=== PATIENT | male | born 1960 | race Caucasian/White ===

== ENCOUNTER 2025-03-24 14:14 | Observation (INO) | payer SELFPAY ==
[2025-03-23 14:26] VITALS: BP 148/92; BMI 33.1
--- NOTE | 2025-03-23 15:10 | ED.GENMED ---
History of Present Illness
<Isaiah Bansal MD, Resident - Last Filed: 03/24/25 00:24>
General
Chief Complaint: Back Pain
Source: patient and significant other
Time Seen by Provider: 03/23/25 15:09
History of Present Illness
History of Present Illness:
64-year-old male with no significant past medical history comes to the ED due to tweaking his back yesterday leading to increased back pain mostly from back muscle spasms. He says that he tweaked it yesterday and his symptoms have been
progressively getting worse he says the symptoms are mainly around the lower back and go across the middle [address] but do not radiate further than that. He has no fever chills shortness of breath or chest pain, states that he has had
similar symptoms in the past however not as intense. Last event happened 4 years ago and previously 3 further years back. He said that he never really took any medications for the back pain other than [id number] NSAIDs. He reports no numbing
or difficulty with movement in his lower extremities. Does not have any pain radiating down his legs.
Past History
<Isaiah Bansal MD, Resident - Last Filed: 03/24/25 00:24>
Past History
ED Past Medical History: None
ED Past Surgical History: None
Review of Systems
<Isaiah Bansal MD, Resident - Last Filed: 03/24/25 00:24>
Review of Systems
Allergies reviewed?: Yes
Constitutional: Reports sleep disturbance; Denies fever or fatigue
EENT: Reports no symptoms
Respiratory: Reports no symptoms
Cardiac: Reports no symptoms
ABD/GI: Reports no symptoms
: Reports no symptoms
Musculoskeletal: Reports back pain (Lower back)
Skin: Reports no symptoms
Neurological: Reports no symptoms
Endocrine: Reports no symptoms
Hematologic/Lymphatic: Reports no symptoms
Psychiatric: Reports no symptoms
Phy Exam
<Isaiah Bansal MD, Resident - Last Filed: 03/24/25 00:24>
General Physical Exam
General Presentation: moderate distress
General age: appears stated age
General Skin: warm and dry
General Habitus: normal
General Mental: anxious
General Hydration: appears well hydrated
Cardiovascular Exam
Cardiovascular Exam: regular rate/rhythm, no edema and no murmur
Pulmonary Exam
Pulmonary Exam: lungs clear, no respiratory distress, no crackles and no wheezing
Musculoskeletal Exam
Musculoskeletal Exam: full ROM and back pain (Marked tenderness lower lumbar spine (6inches of tenderness in the midline) 4-5/10 pain at the moment)
Skin Exam
Skin Exam: normal color, warm/dry and no rash
Course
<Isaiah Bansal MD, Resident - Last Filed: 03/24/25 00:24>
Orders/Labs/Results
Orders:
Orders
03/23/25 15:41
Ketorolac [Toradol] 30 mg IM NOW STA
Lidocaine [Lidocaine 4% Patch] 1 patch TOPICAL ONCE ONE
Apply Lidocaine patch(s) to:: low back
CR Lumbar Spine 2 Or 3 Views Urgent
Comment:
Reason For Exam: back pain
03/23/25 15:42
Cyclobenzaprine HCl [Flexeril] 5 mg PO ONCE ONE
03/23/25 18:20
Oxycodone/Acetaminophen [Percocet 5/325] 1 tablet PO NOW STA
03/23/25 21:04
Diazepam [Valium] 5 mg PO NOW STA
03/24/25 00:00
Dexamethasone Sod Phosphate [Decadron] 10 mg IV NOW STA
Ketorolac [Toradol] 15 mg IV NOW STA
03/24/25 00:52
HYDROmorphone [Dilaudid] 0.5 mg IV NOW STA
03/24/25 01:08
Basic Metabolic Panel Urgent
Complete Blood Count/No Diff Urgent
03/24/25 06:27
Pt Eval And Treat Urgent
Activity Level: Out of Bed-Early Mobility
03/24/25 07:24
Case Management Consult ONCE
Case Management Consult: Discharge Planning
03/24/25 08:53
Diazepam [Valium] 5 mg PO NOW STA
03/24/25 08:54
Ketorolac [Toradol] 15 mg IV NOW STA
03/24/25 Lunch
Regular
At Your Request: Non-Participating
Does patient need a safe tray?: No
Abnormal Lab Results
03/24/25
01:08
RBC 3.57 L 10^6/uL
(4.70-6.10)
Hgb 11.6 L g/dL
(13.0-18.0)
Hct 33.4 L %
(39.0-52.0)
MCH 32.5 H pg
(27.0-31.0)
Chloride 108 H mmol/L
(98-107)
03/24/25 01:08
03/24/25 01:08
Vital Signs
Initial and Last Documented VS:
Initial Vital Signs
Temp Pulse Resp BP Pulse Ox
98.9 F 84 16 148/92 96
03/23/25 14:26 03/23/25 14:26 03/23/25 14:26 03/23/25 14:26 03/23/25 14:26
Last Documented Vital Signs
Temp Pulse Resp BP Pulse Ox
98.9 F 84 20 147/81 95
03/23/25 14:26 03/24/25 09:01 03/24/25 09:01 03/24/25 09:01 03/24/25 09:01
<Michael Espinosa MD - Last Filed: 03/23/25 21:07>
Orders/Labs/Results
Orders:
Orders
03/23/25 15:41
Ketorolac [Toradol] 30 mg IM NOW STA
Lidocaine [Lidocaine 4% Patch] 1 patch TOPICAL ONCE ONE
Apply Lidocaine patch(s) to:: low back
CR Lumbar Spine 2 Or 3 Views Urgent
Comment:
Reason For Exam: back pain
03/23/25 15:42
Cyclobenzaprine HCl [Flexeril] 5 mg PO ONCE ONE
03/23/25 18:20
Oxycodone/Acetaminophen [Percocet 5/325] 1 tablet PO NOW STA
03/23/25 21:04
Diazepam [Valium] 5 mg PO NOW STA
03/24/25 00:00
Dexamethasone Sod Phosphate [Decadron] 10 mg IV NOW STA
Ketorolac [Toradol] 15 mg IV NOW STA
03/24/25 00:52
HYDROmorphone [Dilaudid] 0.5 mg IV NOW STA
03/24/25 01:08
Basic Metabolic Panel Urgent
Complete Blood Count/No Diff Urgent
03/24/25 06:27
Pt Eval And Treat Urgent
Activity Level: Out of Bed-Early Mobility
03/24/25 07:24
Case Management Consult ONCE
Case Management Consult: Discharge Planning
03/24/25 08:53
Diazepam [Valium] 5 mg PO NOW STA
03/24/25 08:54
Ketorolac [Toradol] 15 mg IV NOW STA
03/24/25 Lunch
Regular
At Your Request: Non-Participating
Does patient need a safe tray?: No
Abnormal Lab Results
03/24/25
01:08
RBC 3.57 L 10^6/uL
(4.70-6.10)
Hgb 11.6 L g/dL
(13.0-18.0)
Hct 33.4 L %
(39.0-52.0)
MCH 32.5 H pg
(27.0-31.0)
Chloride 108 H mmol/L
(98-107)
03/24/25 01:08
03/24/25 01:08
Vital Signs
Initial and Last Documented VS:
Initial Vital Signs
Temp Pulse Resp BP Pulse Ox
98.9 F 84 16 148/92 96
03/23/25 14:26 03/23/25 14:26 03/23/25 14:26 03/23/25 14:26 03/23/25 14:26
Last Documented Vital Signs
Temp Pulse Resp BP Pulse Ox
98.9 F 84 20 147/81 95
03/23/25 14:26 03/24/25 09:01 03/24/25 09:01 03/24/25 09:01 03/24/25 09:01
<Judie Park MD - Last Filed: 03/24/25 06:35>
Orders/Labs/Results
Orders:
Orders
03/23/25 15:41
Ketorolac [Toradol] 30 mg IM NOW STA
Lidocaine [Lidocaine 4% Patch] 1 patch TOPICAL ONCE ONE
Apply Lidocaine patch(s) to:: low back
CR Lumbar Spine 2 Or 3 Views Urgent
Comment:
Reason For Exam: back pain
03/23/25 15:42
Cyclobenzaprine HCl [Flexeril] 5 mg PO ONCE ONE
03/23/25 18:20
Oxycodone/Acetaminophen [Percocet 5/325] 1 tablet PO NOW STA
03/23/25 21:04
Diazepam [Valium] 5 mg PO NOW STA
03/24/25 00:00
Dexamethasone Sod Phosphate [Decadron] 10 mg IV NOW STA
Ketorolac [Toradol] 15 mg IV NOW STA
03/24/25 00:52
HYDROmorphone [Dilaudid] 0.5 mg IV NOW STA
03/24/25 01:08
Basic Metabolic Panel Urgent
Complete Blood Count/No Diff Urgent
03/24/25 06:27
Pt Eval And Treat Urgent
Activity Level: Out of Bed-Early Mobility
03/24/25 07:24
Case Management Consult ONCE
Case Management Consult: Discharge Planning
03/24/25 08:53
Diazepam [Valium] 5 mg PO NOW STA
03/24/25 08:54
Ketorolac [Toradol] 15 mg IV NOW STA
03/24/25 Lunch
Regular
At Your Request: Non-Participating
Does patient need a safe tray?: No
Abnormal Lab Results
03/24/25
01:08
RBC 3.57 L 10^6/uL
(4.70-6.10)
Hgb 11.6 L g/dL
(13.0-18.0)
Hct 33.4 L %
(39.0-52.0)
MCH 32.5 H pg
(27.0-31.0)
Chloride 108 H mmol/L
(98-107)
03/24/25 01:08
03/24/25 01:08
Vital Signs
Initial and Last Documented VS:
Initial Vital Signs
Temp Pulse Resp BP Pulse Ox
98.9 F 84 16 148/92 96
03/23/25 14:26 03/23/25 14:26 03/23/25 14:26 03/23/25 14:26 03/23/25 14:26
Last Documented Vital Signs
Temp Pulse Resp BP Pulse Ox
98.9 F 84 20 147/81 95
03/23/25 14:26 03/24/25 09:01 03/24/25 09:01 03/24/25 09:01 03/24/25 09:01
<Shanaqian Gary, DO - Last Filed: 03/24/25 12:33>
Orders/Labs/Results
Orders:
Orders
03/23/25 15:41
Ketorolac [Toradol] 30 mg IM NOW STA
Lidocaine [Lidocaine 4% Patch] 1 patch TOPICAL ONCE ONE
Apply Lidocaine patch(s) to:: low back
CR Lumbar Spine 2 Or 3 Views Urgent
Comment:
Reason For Exam: back pain
03/23/25 15:42
Cyclobenzaprine HCl [Flexeril] 5 mg PO ONCE ONE
03/23/25 18:20
Oxycodone/Acetaminophen [Percocet 5/325] 1 tablet PO NOW STA
03/23/25 21:04
Diazepam [Valium] 5 mg PO NOW STA
03/24/25 00:00
Dexamethasone Sod Phosphate [Decadron] 10 mg IV NOW STA
Ketorolac [Toradol] 15 mg IV NOW STA
03/24/25 00:52
HYDROmorphone [Dilaudid] 0.5 mg IV NOW STA
03/24/25 01:08
Basic Metabolic Panel Urgent
Complete Blood Count/No Diff Urgent
03/24/25 06:27
Pt Eval And Treat Urgent
Activity Level: Out of Bed-Early Mobility
03/24/25 07:24
Case Management Consult ONCE
Case Management Consult: Discharge Planning
03/24/25 08:53
Diazepam [Valium] 5 mg PO NOW STA
03/24/25 08:54
Ketorolac [Toradol] 15 mg IV NOW STA
03/24/25 Lunch
Regular
At Your Request: Non-Participating
Does patient need a safe tray?: No
Abnormal Lab Results
03/24/25
01:08
RBC 3.57 L 10^6/uL
(4.70-6.10)
Hgb 11.6 L g/dL
(13.0-18.0)
Hct 33.4 L %
(39.0-52.0)
MCH 32.5 H pg
(27.0-31.0)
Chloride 108 H mmol/L
(98-107)
03/24/25 01:08
03/24/25 01:08
Vital Signs
Initial and Last Documented VS:
Initial Vital Signs
Temp Pulse Resp BP Pulse Ox
98.9 F 84 16 148/92 96
03/23/25 14:26 03/23/25 14:26 03/23/25 14:26 03/23/25 14:26 03/23/25 14:26
Last Documented Vital Signs
Temp Pulse Resp BP Pulse Ox
98.9 F 84 20 147/81 95
03/23/25 14:26 03/24/25 09:01 03/24/25 09:01 03/24/25 09:01 03/24/25 09:01
<Isaiah Bansal MD, Resident - Last Filed: 03/24/25 00:24>
MDM/Problems Addressed
Differential Diagnosis Includes:
Lower back spasms, lumbar spine fracture, disc herniation
MDM/Problems Addressed:
64-year-old male with no significant past medical history comes to the ED due to worsening lower back pain.
Will help manage pain symptoms with IM Toradol, lidocaine patch, and Flexeril for back muscle spasms
Will get lumbar spine x-ray to check for fracture
Patient will most likely have to follow-up with primary care and Ortho for further management
Lumbar Spine X-Ray does not show any compression or spondylolisthesis. Showed some degenerative disc space narrowing.
Pain not in control so will give Oxycodone/Acetaminophen
Trying to get patient to sit up-right and eventually walk
Continues to have back spasms and pain. Continuing to try and get him to walk but he remains hesitant.
Will give a dose of Valium to help him with the muscle spasms.
Continues to have muscle spasms and pain but able to walk with assistance. Will continue trying to ambulate.
Pain is still continuing and ambulation is still difficult. Started IV pain medication and may have to keep patient in the hospital for further management and therapy.
<Isaiah Bansal MD, Resident - Last Filed: 03/24/25 00:24>
*Pulse Oximetry
SaO2: 96
Oxygen Mode of Delivery: Room air
Patient hypoxic: no
*Critical Care Note
Total Time (30-74mins, 75-104mins- exclusive of procedures): Not Applicable
<Judie Park MD - Last Filed: 03/24/25 06:35>
Update Note
Update Note:
628am (Sign out) Pt told RN at approx 130am upon reassessment that pain continued, felt unable to manage at home with level of pain. Pt was presetned for admission to Dr Meza.
Dr Meza then indicated that he would be unable to complete admission orders overnight, and even with orders, woudl remain in ED given hospital full. Recommends PT consult and reassessment.
Pt is currently sleeping. PT consult ordered. Will s/o that pending PT eval, either pt will need to be observed in hospital under hospitalist vs plan for d/c/placement. No acute neuro findings noted by ED team.
<Shana Gary DO - Last Filed: 03/24/25 12:33>
Update Note
Update Note:
628am (Sign out) Pt told RN at approx 130am upon reassessment that pain continued, felt unable to manage at home with level of pain. Pt was presetned for admission to Dr Meza.
Dr Meza then indicated that he would be unable to complete admission orders overnight, and even with orders, woudl remain in ED given hospital full. Recommends PT consult and reassessment.
Pt is currently sleeping. PT consult ordered. Will s/o that pending PT eval, either pt will need to be observed in hospital under hospitalist vs plan for d/c/placement. No acute neuro findings noted by ED team.
Attending Sign Out Note (Shana Gary DO)
07:30 -received signout from preceding physician, 64-year-old male presenting for low back pain. No concerning features on exam, hemodynamically stable. Patient having difficulty with ambulation due to pain, received multiple pain medications.
Currently resting comfortably. Plan for PT/OT consultation case management
12:30 -patient seen by PT, recommended for SNF. Patient then seen by case management, no insurance so unable to place in SNF today. Did go [id number] with patient, notes that he is overall feeling improved, did better on additional trial of
ambulation, however was still very unsteady. For this reason admitting for pain control given that patient has been in the ER for over 20 hours, and continued PT consultation
ED Attending Note
<Isaiah Bansal MD, Resident - Last Filed: 03/24/25 00:24>
-
Portions of this chart may have been created with voice recognition software.� Occasional wrong word or��sound alike� substitutions may have occurred due to the inherent limitations of voice recognition software.
<Michael Espinosa MD - Last Filed: 03/23/25 21:07>
ED Attending Note
Patient seen and examined by attending physician: Yes
I performed a history and physical exam of patient and discussed management with resident, I reviewed resident's note and agree with documented findings and plan of care.: Yes
ED Attending Note:
I have seen and evaluated the patient with a [id number] encounter. I have spoken to the resident and involved in the medical history, the physical exam, medical decision making.
Evaluation and management service: agree unless noted differently below.
Results interpretation: agree unless noted differently below.
Focused HPI: 64-year-old male with history as noted presents for evaluation of back pain. Patient reports that he was in the bathroom yesterday and he twisted to grab something and felt some pain in his right low back. He says that initially pain
was mild but over the course of the day back started to tighten up. When he woke up this morning he had severe tightness and pain across the low back to the point that he could not get up without severe pain and so he came to the ER for assessment.
He denies any radiating symptoms down the legs. He denies any numbness or weakness in the legs. He denies any saddle anesthesia. Denies any bowel or bladder incontinence. Denies any fevers or chills. He says he has had similar symptoms in the
past for back spasms. He took meloxicam today without significant improvement.
Physical exam: Awake and alert, laying flat in bed appears mildly uncomfortable. Vital signs are normal. Abdomen nontender. He has no midline tenderness of the thoracic or lumbar spine. Mild generalized tenderness in the paraspinal musculature
of the lumbar region but not focally tender. Negative straight leg raise bilaterally. Motor and sensory intact proximally distally in the lower extremities bilaterally.
Medical Decision Makin-year-old male presents with low back pain as described above. Vitals and exam as above. History is most consistent with musculoskeletal back pain/back spasms. Will check x-ray of the lumbar region to rule out
compression fracture although low clinical suspicion. Will treat symptomatically. Reassess after the above.
X-ray shows no acute pathology, chronic degenerative changes/arthritis. Symptoms better controlled here after medication, still having difficulty moving because of spasm of his back. Trial oxycodone.
Symptoms continue to improve but still having spasms with movement. Will trial Valium and reassess.
<Shana Gary DO - Last Filed: 03/24/25 12:33>
ED Attending Note
ED Attending Note:
I have seen and evaluated the patient with a [id number] encounter. I have spoken to the resident and involved in the medical history, the physical exam, medical decision making.
Evaluation and management service: agree unless noted differently below.
Results interpretation: agree unless noted differently below.
Focused HPI: 64-year-old male with history as noted presents for evaluation of back pain. Patient reports that he was in the bathroom yesterday and he twisted to grab something and felt some pain in his right low back. He says that initially pain
was mild but over the course of the day back started to tighten up. When he woke up this morning he had severe tightness and pain across the low back to the point that he could not get up without severe pain and so he came to the ER for assessment.
He denies any radiating symptoms down the legs. He denies any numbness or weakness in the legs. He denies any saddle anesthesia. Denies any bowel or bladder incontinence. Denies any fevers or chills. He says he has had similar symptoms in the
past for back spasms. He took meloxicam today without significant improvement.
Physical exam: Awake and alert, laying flat in bed appears mildly uncomfortable. Vital signs are normal. Abdomen nontender. He has no midline tenderness of the thoracic or lumbar spine. Mild generalized tenderness in the paraspinal musculature
of the lumbar region but not focally tender. Negative straight leg raise bilaterally. Motor and sensory intact proximally distally in the lower extremities bilaterally.
Medical Decision Makin-year-old male presents with low back pain as described above. Vitals and exam as above. History is most consistent with musculoskeletal back pain/back spasms. Will check x-ray of the lumbar region to rule out
compression fracture although low clinical suspicion. Will treat symptomatically. Reassess after the above.
X-ray shows no acute pathology, chronic degenerative changes/arthritis. Symptoms better controlled here after medication, still having difficulty moving because of spasm of his back. Trial oxycodone.
Symptoms continue to improve but still having spasms with movement. Will trial Valium and reassess.
Discharge Plan
Departure
Patient Disposition: Admit
Date of Disposition: 03/24/25
Time of Disposition: 12:33
Presentation/result/management discussed w/ accepting MD/DO: Hospitalist
Patient with high blood pressure during this ER visit?: Yes
Condition: Fair
Discharge Problem:
Lumbar back pain
Prescriptions:
No Action
No Current Medications
0
Referrals:
Nam Wong, DO [Family Provider, Internal Medicine] - Call in 1-3 days for appt
Interventions
Interventions:
*Risk Screen - Suicide Last Done: 03/23/25 14:26
*General Assessment Last Done: 03/23/25 14:31
*Neglect/Abuse Screening Last Done: 03/23/25 14:26
*ED- Fall Risk Assessment Last Done: 03/23/25 14:26
*ED COVID-19 Vaccine History Last Done: 03/23/25 14:26
ED-Musculoskeletal Assessment Last Done: 03/24/25 07:46
Discharge Date and Time
Print Language: LATVIAN
[2025-03-23] MEDS: TORADOL 30 MG IM (16:09)
[2025-03-23] MEDS: FLEXERIL 5 MG PO (16:11)
[2025-03-23] MEDS: LIDOCAINE 4% PATCH 1 PATCH TOPICAL (16:11)
[2025-03-23 17:33] VITALS: BP 138/93
[2025-03-23] MEDS: PERCOCET 5/325 1 TABLET PO (18:27)
[2025-03-23] MEDS: VALIUM 5 MG PO (21:12)
[2025-03-24] MEDS: DECADRON 10 MG IV (00:17)
[2025-03-24] MEDS: TORADOL 15 MG IV ×2 (00:17→08:58)
[2025-03-24] MEDS: DILAUDID 0.5 MG IV (01:00)
[2025-03-24 01:13] LABS: Hematocrit 33.4 % (39.0-52.0); Hemoglobin 11.6 g/dL (13.0-18.0); Mean Corp Hgb Conc. 34.7 g/dL (33.0-37.0); Mean Corpuscular Volume 93.6 fL (80.0-94.0); Platelet Count 170 10^3/uL (130-400); Red Cell Dist. Width 12.5 % (11.5-14.5)
[2025-03-24 01:36] LABS: Blood Urea Nitrogen 13 mg/dl (9-20); Calcium 8.9 mg/dl (8.4-10.2); Carbon Dioxide 26 mmol/L (22-30); Chloride 108 mmol/L (98-107); Estimated Creatinine Clearance > 125 ml/min; Glucose 93 mg/dl (70-99); Potassium 3.9 mmol/L (3.5-5.1); Sodium 138 mmol/L (135-145); eGFR > 60.00
[2025-03-24 03:15] VITALS: BP 127/94
[2025-03-24] MEDS: VALIUM 5 MG PO (08:58)
[2025-03-24 09:01] VITALS: BP 147/81
[2025-03-24 09:17] VITALS: BP 147/81; PULSE 84
--- NOTE | 2025-03-24 11:07 | CM ---
CM reviewed chart and met with pt bedside in ED. Pt lives alone, 1 story home, [address].
Independent in ADLs, personal care and ambulation at baseline. He has ordered a rolling walker to use at home.
States he has had back pain for 40 years and can usually manage it at home.
He told me PT was coming back since he needed to be medicated, I TT PT, she is not planning on seeing him again today.
Discussed with Anabela, ED nurse, who does not feel comfortable helping him as she is afraid he will fall.
Pt confirms he does not have health insurance at this time.
Will discuss with ED provider.
--- NOTE | 2025-03-24 12:39 | HPS.HSE ---
Family Physician
-
Family Physician: Nam Wong
Chief Complaint
-
Lower back pain/spasms
History of Present Illness
64-year-old male complaining of tweaking his back yesterday. He reports lower back pain with spasms. He has received multiple medications in the ER had evaluation by PT who recommended SNF as he was unable to be discharged home safely due to
impaired ambulation. He reports having similar back pain 4 years ago and 7 years ago. He did not try any [id number] medications. He denies radiation to legs, numbness, tingling, incontinence of bowel or bladder, urinary symptoms, fever,
chills, abdominal pain, nausea, vomiting, diarrhea, chest pain, palpitations, cough, shortness of breath. He reports relief of spasms after Flexeril and Toradol. He has past medical history of insomnia
Medical History
Past Medical History
Past Medical History: Reports Other
Additional Past Medical History:
Insomnia
Past Surgical History: Reports Other
Additional Past Surgical History:
Appendectomy
Right testicle repair secondary to baseball trauma
Social History
Tobacco: Non-smoker
Alcohol: Occasional
Drug: None
Personal: Other ([facility], [place]�)
Living: With Family ([facility], [place]�)
Employment: Employed
Family History
Family History: Not pertinent
Allergies / Home Medications
Allergies reflects when Allergies were last updated in [facility].
Home Medications with original date entered in [facility]
Allergy/Medication List:
Allergies
Allergy/AdvReac Type Severity Reaction Status Date / Time
No Known Allergies Allergy Verified 03/24/25 03:11
Home Medications
temazepam 15 mg capsule (Restoril) 15 mg PO HS 03/24/25
Review of Systems
-
History Source: Patient and Family (anc� at bedside)
A 12 point ROS was completed and negative except as noted: Yes
Constitutional: Denies Fatigue or Chills
EENT: Denies Sore Throat or Runny Nose
Respiratory: Denies Cough or Trouble Breathing
Cardiac: Denies Chest Pain or Palpitations
Abdomen/GI: Denies Abdominal Pain, Nausea, Vomiting, Diarrhea or Constipated
: Denies Dysuria, Frequency, Flank Pain, Incontinence or Difficulty Voiding
Musculoskeletal: Reports Other (Lower lumbar paraspinal pain/spasms); Denies Joint Pain or Edema
Skin: Denies Itching or Rash
Neurological: Denies Dizzy, Headache or Weakness
Endocrine: Reports No Symptoms
Hematologic/Lymphatic: Reports No Symptoms
Psych: Reports Calm
Physical Exam
Vital Signs
Vital Signs
Temp Pulse Resp BP Pulse Ox
98.9 F 84 20 147/81 95
03/23/25 14:26 03/24/25 09:01 03/24/25 09:01 03/24/25 09:01 03/24/25 09:01
Physical Exam
General: Conversant; No Pain, Fever or Chills
HEENT: NormoCephalic, Anicteric, Moist mucous membranes, Smiley Conjunctivae and No Ptosis
Respiratory: Clear; No Wheezes, Rales or Rhonchi
Cardiac: S1/S2 and Regular Rhythm; No Murmur, Rub, Gallop or Peripheral Edema
GI: Soft, Non Tender, Non Distended, Normal Bowel Sounds and No Hepatosplenomegaly
Rectal: Deferred by Provider
Genito-urinary: Deferred by me
Musculoskeletal: No Clubbing, No Cyanosis, No Edema and Other (Tenderness paraspinal lower lumbar back bilateral negative vertebral tenderness, 5 out of 5 strength lower extremities while lying in bed)
Neuro: AO x 3, No Motor Deficits (While in bed), Cranial Nerves Intact, No Sensory Deficits and DTR's Intact & Symmetrical; No Slurred Speech, Facial Droop, Tremors or Sedated
Psych: Calm
Laboratory Results
-
03/24/25 01:08
03/24/25 01:08
Impression/Plan
-
Impression/plan:
Observation MedSurg
#Intractable back pain/spasm with acute ambulatory dysfunction
Patient was given dexamethasone in the ER, multiple doses Toradol
- Continue Flexeril as needed, Toradol, oxycodone/acetaminophen
-Moist heat
- PT consult
- Case management consult
#Insomnia
Continue Restoril at bedtime
DVT prophylaxis
SCDs
Full code
--- NOTE | 2025-03-24 13:21 | W.PN.UPDATE ---
Update Note
Progress Note Update
This is an addendum to H&P written by Tamara Cleveland on 03/24/2025. �Patient seen and examined independently with TELECOMMUNICATIONS SALES REPRESENTATIVE.
64-year-old male past medical history of insomnia, presenting with lower lumbar back pain/paraspinal spasms after twisting his back yesterday. �Paraspinal muscle tenderness on examination.
Lumbar x-ray from yesterday shows no abnormality apart from degenerative disease.
Pain has improved patient able to ambulate with walker after receiving Toradol, Dilaudid, diazepam, Flexeril, lidocaine patch.
Flexeril, Toradol, Percocet if needed for pain. �PT/OT.
[2025-03-24 14:55] VITALS: BP 120/68
[2025-03-24 15:36] VITALS: BMI 32.4
[2025-03-24] MEDS: FLEXERIL 5 MG PO ×2 (15:45→21:26)
[2025-03-24] MEDS: PERCOCET 5/325 1 TABLET PO (19:36)
[2025-03-24] MEDS: RESTORIL 15 MG PO (21:27)
[2025-03-24 23:53] VITALS: BP 98/78
[2025-03-25 07:00] VITALS: BP 140/83
[2025-03-25] MEDS: FLEXERIL 5 MG PO (07:56)
[2025-03-25] MEDS: PERCOCET 5/325 1 TABLET PO (08:02)
--- NOTE | 2025-03-25 08:27 | CM ---
Addendum entered by Sveta Salter 03/25/25 11:22:
Patient seen by Kary [facility], patient is over income for Medicaid
PT eval today rec Outpatient PT
patient states does not need a script as his fiance works for [employer] and has an appt.
PLAN: Home, outpatient therapy rec
sister to transport
Original Note:
Per previous CM note - no insurance
PT rec SNF
this CM called Kary from [facility] [phone] who states she will see the patient & pre-screen him to see if he is eligible for medicaid
[2025-03-25 10:40] VITALS: BP 118/77; PULSE 74; O2SAT 97
--- NOTE | 2025-03-25 10:45 | W.PN.HOSP.TC ---
Addendum entered and electronically signed by Claudio Loyd MD 03/25/25 16:01:
[id number]
Original Note:
Today's Communication/Plan
-
Medrol pack
Flexeril as needed
Hold Restoril if taking Flexeril
Follow-up ortho spine, PCP outpatient
Assessment / Plan
Assessment / Plan
General: Conversant; No Pain, Fever or Chills
HEENT: NormoCephalic, Anicteric, Moist mucous membranes, [place] Conjunctivae and No Ptosis
Respiratory: Clear; No Wheezes, Rales or Rhonchi
Cardiac: S1/S2 and Regular Rhythm; No Murmur, Rub, Gallop or Peripheral Edema
GI: Soft, Non Tender, Non Distended, Normal Bowel Sounds and No Hepatosplenomegaly
Rectal: Deferred by Provider
Genito-urinary: Deferred by me
Musculoskeletal: No Clubbing, No Cyanosis, No Edema and Other (Tenderness paraspinal lower lumbar back bilateral negative vertebral tenderness, 5 out of 5 strength lower extremities while lying in bed)
Neuro: AO x 3, No Motor Deficits (While in bed), Cranial Nerves Intact, No Sensory Deficits and DTR's Intact & Symmetrical; No Slurred Speech, Facial Droop, Tremors or Sedated
#Intractable back pain/spasm with acute ambulatory dysfunction
Patient was given dexamethasone in the ER, multiple doses Toradol
Continue Flexeril as needed -should not drive or operate heavy machinery with use
DC on Medrol Pack
ambulating well inpatient
Follow-up PCP and orthopedic spine outpatient
#Insomnia
Hold Restoril at bedtime if taking Flexeril
DVT prophylaxis
SCDs
More than 30 minutes spent in discharge including
Final examination of the patient
Summarizing hospital stay
Instructions for continuing care to all relevant caregivers
Preparation of discharge records, prescriptions, and referral forms
Total time spent (in minutes): 36
Anticipated Discharge: Today
Subjective/Interval History
-
Date of Service: March 25, 2025
Back pain improved, ambulating
Objective Data
-
Vital Signs:
Vital Signs
Temp Pulse Resp BP Pulse Ox
97.9 F 63 20 140/83 94
03/25/25 07:00 03/25/25 07:00 03/25/25 07:00 03/25/25 07:00 03/25/25 07:30
Review of Systems
-
History Source: Patient
All other systems: Not reviewed unless documented
Data Reviewed
-
Diagnostic Radiology: Report Reviewed by me
Labs: Labs Reviewed by me
[2025-03-25 12:01] VITALS: BP 131/82
== END 2025-03-25 13:26 | disposition home or self-care (01) ==
LOC: 3 WEST ACU 14:14
PROVIDERS: ADMITTING PHYSICIAN Hospitalist; ATTENDING PHYSICIAN Internal Medicine; EMERGENCY PHYSICIAN Emergency Medicine; FAMILY PHYSICIAN Internal Medicine
DX: M54.50 Low back pain, unspecified (principal); M62.830 Muscle spasm of back; G47.00 Insomnia, unspecified; Z59.71 Insufficient health insurance coverage
CPT/HCPCS: 72100; 80048; 85027; 96372; 97116; 97530; 99285; G0378